=== PATIENT | female | born 1940 | race Caucasian/White ===

== ENCOUNTER 2023-07-11 17:23 | Emergency (ER) | payer MEDICARE ==
[~2023-07-11] VITALS: Ht 152.4 cm; Wt 48.5 kg
[2023-07-11] MEDS ORDERED: IV NS 0.9% 250 ML IV ONE (17:37)
[2023-07-11] MEDS ORDERED: CT SWABBABLE VALVE TRANS SET 1 EA INFUS.SET MC ONE (17:37)
[2023-07-11] MEDS ORDERED: IOHEXOL-350 100 ML VIAL IV ONE (17:37)
[2023-07-11 17:40] LABS: BASOPHILS # (AUTO) 0.1 K/uL (0.0-0.2); BASOPHILS % (AUTO) 1.4 % (0.0-2.0); EOSINOPHILS # (AUTO) 0.2 K/uL (0.0-0.7); EOSINOPHILS % (AUTO) 2.2 % (0.0-6.0); HEMATOCRIT 29 % (33-45); HEMOGLOBIN 9.6 g/dL (11.5-14.8); LYMPHOCYTES # (AUTO) 1.6 K/uL (0.8-4.8); LYMPHOCYTES % (AUTO) 22.6 % (20.0-44.0); MEAN CORPUSCULAR HEMOGLOBIN 30 PG (26.0-33.0); MEAN CORPUSCULAR HGB CONC 33 g/dl (31.0-36.0); MEAN CORPUSCULAR VOLUME 91 fL (82-100); MONOCYTES # (AUTO) 0.3 K/uL (0.1-1.30); MONOCYTES % (AUTO) 4.6 % (2.0-12.0); NEUTROPHILS % (AUTO) 69.2 % (43.0-81.0); PLATELET COUNT (AUTO) 213 K/uL (150-450); RED BLOOD CELL COUNT(AUTO) 3.23 MIL/uL (4.0-5.2); RED CELL DISTRIBUTION WIDTH 17.1 % (11.5-15.0); WHITE BLOOD COUNT (AUTO) 7.2 K/uL (4.3-11.0)
[2023-07-11 17:50] LABS: CALCIUM, SERUM 8.4 mg/dL (8.5-10.1); CARBON DIOXIDE 28 mmol/L (21-32); CHLORIDE 104 mmol/L (98-107); CREATININE 0.9 mg/dL (0.6-1.3); GLUCOSE 114 mg/dL (74-106); POTASSIUM 3.5 mmol/L (3.5-5.1); SODIUM SERUM 137 mmol/L (136-145); UREA NITROGEN, BLOOD 14 mg/dL (7-18)
[2023-07-11 17:55] LABS: INR 1.12 (0.91-1.10); PARTIAL THROMBOPLASTIN TIME 26.7 SEC (24.3-34.3); PROTHROMBIN TIME 11.4 SECS (9.2-11.1)
[2023-07-11] MEDS: NORMAL SALINE FLUSH 10 ML SYR IV ONE (18:27)
[2023-07-11] MEDS ORDERED: TNKASE WASTE DOCUMENTATION IV ONE (18:30)
[2023-07-11] MEDS ORDERED: TENECTEPLASE 50 MG KIT IV ONE (18:30)
[2023-07-11] MEDS ORDERED: NORMAL SALINE FLUSH 10 ML SYR IV ONE (18:30)
[2023-07-11 19:20] VITALS: BP 128/76; TEMP 98.3; O2SAT 98
[2023-07-11 20:13] LABS: BAND % (MANUAL) 2 % (0.0-5.0); EOSINOPHILS % (MANUAL) 2 % (0-4); LYMPHOCYTES % (MANUAL) 14 % (16-48); MONOCYTES % (MANUAL) 8 % (0-11.0); NEUTROPHILS % (MANUAL) 74 (42-76); PLATELET ESTIMATE ADEQUATE
[2023-07-11 20:14] LABS: OVALOCYTES 1+; TARGET CELLS 1+
== END 2023-07-11 19:21 | disposition short-term general hospital (02) ==
LOC: ER 17:27
DX: I63.9 Cerebral infarction, unspecified (principal); I10 Essential (primary) hypertension
CPT/HCPCS: 99291; 70498; 93005; 70496; 85025; 80048; 36415; 84484; 85730; 82962; 70450; 85007; J7050; Q9967